=== PATIENT | female | born 1960 | race Caucasian/White ===

== ENCOUNTER 2020-01-12 01:10 | Emergency (ER) | payer BC, OTHER ==
[2020-01-12] MEDS ORDERED: Albuterol/Ipratropium 3.0-0.5 MG/3 ML Neb Soln ONE (01:18)
[2020-01-12] MEDS ORDERED: Albuterol/Ipratropium 3.0-0.5 MG/3 ML Neb Soln NEB ONE (01:22)
[2020-01-12] MEDS ORDERED: EPINEPHrine 1 MG in Sodium Chloride 0.9% 100 ML IV SCH ×2 (01:30→02:15)
[2020-01-12] MEDS ORDERED: DOPamine/Dextrose 5%-Water 400 MG/250 ML BAG IV SCH ×2 (01:45→03:15)
[2020-01-12] MEDS ORDERED: Piperacillin/Tazobactam 4.5 GM in Sodium Chloride 0.9% 100 ML IV ONE (01:59)
[2020-01-12] MEDS ORDERED: Piperacillin/Tazobactam 4.5 GM Vial ONE (02:01)
[2020-01-12] MEDS ORDERED: Sodium Chloride 0.9% 100 ML ONE (02:03)
[2020-01-12] MEDS ORDERED: EPINEPHrine 1 MG/ML SDV ONE ×2 (02:12→02:14)
[2020-01-12] MEDS ORDERED: Sodium Chloride 0.9% 250 ML ONE (02:13)
[2020-01-12] MEDS ORDERED: Aspirin 81 MG Tab.Chew PO ONE (02:14)
[2020-01-12] MEDS ORDERED: Aspirin 81 MG Tab.Chew ONE (02:15)
--- NOTE | 2020-01-12 02:29 | EDM.PDOC ---
ED HPI GENERAL MEDICAL PROBLEM - General Chief Complaint: Cardiovascular Problem Stated Complaint: [facility] Time Seen by Provider: 01/12/20 01:10 Source of Information: Reports: EMS, Family History Limitations: Reports: Physical Impairment - History of Present Illness INITIAL COMMENTS - FREE TEXT/NARRATIVE: 59-year-old female with no known coronary artery disease, she does have a history of hypertension, asthma and heavy smoking. Tonight she was in the process of putting a TENS unit on her back when she collapsed and called out for her . He did not come the first time she yelled because he was half asleep, the second time he went out and found her unconscious facedown on the floor. He rolled her over and she was unresponsive, he started CPR. After 20 minutes EMS arrived and initiated resuscitation, initial finisher special stocks showed ventricular fibrillation. They did get return of spontaneous circulation after 2 defibrillations and 2 doses of epinephrine. On arrival to the emergency room she was starting to become hypotensive and bradycardic. Epinephrine drip at 8 mcg per kg a minute was started, and she was prepared for intubation. Cardiac monitoring showed atrial fibrillation with occasional PVCs, rate 80. 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 [Unable to Verify Home Med List] 01/12/20 [History] ED ROS GENERAL - Review of Systems Review Of Systems: See Below Constitutional: Reports: Other (She has been falling asleep while at the computer over the past several days). Denies: Fever, Chills Respiratory: Reports: Other (According to her she was having some cold symptoms over the past 3 days and he got her some cold medicine today which she did not take) GI/Abdominal: Denies: Nausea, Vomiting Neurological: Denies: Headache Free Text/Narrative/Comment: Brief review of systems was obtained from her ED EXAM, GENERAL - Physical Exam Exam: See Below Exam Limited By: Other (Very obese, unresponsive female intubated with a temporary airway by EMS. She is completely unresponsive) Eye Exam: Right Eye: PERRL (Pupils are equal at 4 mm and slightly reactive) Head: Atraumatic Respiratory/Chest: Wheezing (Scattered expiratory wheezes are present) Cardiovascular: Irregularly Irregular, Other (Very distant heart sounds) GI/Abdominal: Other (Morbid obesity, no involuntary guarding) Extremities: Other (1+ symmetric lower extremity edema) Neurological: Unresponsive (Patient had no reaction to pain) Skin Exam: Warm, Dry Course - Vital Signs Last Recorded V/S: Last Vital Signs Temp Pulse 70 01/12/20 01:15 Resp 12 01/12/20 01:15 BP 120/70 01/12/20 01:15 Pulse Ox 85 L 01/12/20 01:15 - Orders/Labs/Meds Orders: Active Orders 24 hr Category Date Time Status Insert Taylor Catheter [Insert Urinary Catheter] [OM.PC] Care 01/12/20 02:00 Ordered Q24H RT Aerosol Therapy [RC] ASDIRECTED Care 01/12/20 01:22 Active Urinary Catheter Assessment [RC] ASDIRECTED Care 01/12/20 01:53 Active Chest 1V Frontal [CR] Stat Exams 01/12/20 01:20 Taken CULTURE BLOOD [BC] Routine Lab 01/12/20 01:55 Received CULTURE BLOOD [BC] Routine Lab 01/12/20 02:09 Received DRUG SCREEN, URINE [URCHEM] Stat Lab 01/12/20 02:26 Ordered UA W/MICROSCOPIC [URIN] Urgent Lab 01/12/20 02:26 Ordered DOPamine/Dextrose 5%-Water [DOPamine in D5W 400 MG/250 Med 01/12/20 01:45 Ordered ML] 400 mg in 250 ml IV TITRATE Medication Orders Dopamine HCl/Dextrose (Dopamine In D5w 400 Mg/250 Ml) 400 mg in 250 mls @ 0 mls /hr IV TITRATE CHLOE; Protocol Labs: Laboratory Tests 01/12/20 01/12/20 01/12/20 Range/Units 01:10 01:10 01:10 WBC 13.4 H (4.5-11.0) K/uL RBC 5.29 (3.30-5.50) M/uL Hgb 16.2 H (12.0-15.0) g/dL Hct 51.8 H (36.0-48.0) % MCV 98 (80-98) fL MCH 31 (27-31) pg MCHC 31 L (32-36) % Plt Count 294 (150-400) K/uL Add Manual Diff Yes Neutrophils % (Manual) 74 H (36-66) % Band Neutrophils % 3 L (5-11) % Lymphocytes % (Manual) 14 L (24-44) % Monocytes % (Manual) 6 (2-6) % Eosinophils % (Manual) 2 (2-4) % D-Dimer, Quantitative (0.0-400.0) ng/mL Puncture Site Lt radial ABG pH 7.085 L* (7.350-7.450) ABG pCO2 90.3 H* (35.0-42.0) mmHg ABG pO2 69.7 L (75.0-100.0) mmHg ABG HCO3 25.9 (22.0-26.0) mmol/L ABG Total CO2 24.5 (21.0-25.0) mmol/L ABG O2 Saturation 83.8 L (95.0-98.0) % ABG O2 Content 18.7 (15.0-23.0) %vol ABG Base Excess -7.7 mm/L ABG Hemoglobin 16.3 H (12.0-16.0) g/dL ABG Oxyhemoglobin 82.0 % ABG Carboxyhemoglobin 1.5 (0.0-1.6) % ABG Methemoglobin 0.7 % Mateusz Test Pass O2 Delivery Device Resuscitation bag Sodium 129 L (140-148) mmol/L Potassium 3.6 (3.6-5.2) mmol/L Chloride 90 L (100-108) mmol/L Carbon Dioxide 29 (21-32) mmol/L Anion Gap 13.6 (5.0-14.0) mmol/L BUN 6 L (7-18) mg/dL Creatinine 1.1 H (0.6-1.0) mg/dL Est Cr Clr Drug Dosing TNP Estimated GFR (MDRD) 51 L (>60) Glucose 278 H (74-106) mg/dL Calcium 8.4 L (8.5-10.1) mg/dL Total Bilirubin 0.5 (0.2-1.0) mg/dL AST 25 (15-37) U/L ALT 26 (12-78) U/L Alkaline Phosphatase 128 H (46-116) U/L Troponin I 0.019 (0.000-0.056) ng/mL Total Protein 7.1 (6.4-8.2) g/dL Albumin 2.6 L (3.4-5.0) g/dL Globulin 4.5 H (2.3-3.5) g/dL Albumin/Globulin Ratio 0.6 L (1.2-2.2) Urine Color (YELLOW) Urine Appearance (CLEAR) Urine pH (5.0-8.0) Ur Specific Apex (1.008-1.030) Urine Protein (NEGATIVE) mg/dL Urine Glucose (UA) (NEGATIVE) mg/dL Urine Ketones (NEGATIVE) mg/dL Urine Occult Blood (NEGATIVE) Urine Nitrite (NEGATIVE) Urine Bilirubin (NEGATIVE) Urine Urobilinogen (0.2-1.0) EU/dL Ur Leukocyte Esterase (NEGATIVE) Urine RBC (0-5) Urine WBC (0-5) Ur Epithelial Cells Amorphous Sediment Urine Bacteria Urine Mucus Urine Opiates Screen (NEGATIVE) Ur Oxycodone Screen (NEGATIVE) Urine Methadone Screen (NEGATIVE) Ur Propoxyphene Screen (NEGATIVE) Ur Barbiturates Screen (NEGATIVE) Ur Tricyclics Screen (NEGATIVE) Ur Phencyclidine Scrn (NEGATIVE) Ur Amphetamine Screen (NEGATIVE) U Methamphetamines Scrn (NEGATIVE) Urine MDMA Screen (NEGATIVE) U Benzodiazepines Scrn (NEGATIVE) U Cocaine Metab Screen (NEGATIVE) U Marijuana (THC) Screen (NEGATIVE) 01/12/20 01/12/20 01/12/20 Range/Units 01:10 02:00 02:16 WBC (4.5-11.0) K/uL RBC (3.30-5.50) M/uL Hgb (12.0-15.0) g/dL Hct (36.0-48.0) % MCV (80-98) fL MCH (27-31) pg MCHC (32-36) % Plt Count (150-400) K/uL Add Manual Diff Neutrophils % (Manual) (36-66) % Band Neutrophils % (5-11) % Lymphocytes % (Manual) (24-44) % Monocytes % (Manual) (2-6) % Eosinophils % (Manual) (2-4) % D-Dimer, Quantitative 3490 H (0.0-400.0) ng/mL Puncture Site ABG pH (7.350-7.450) ABG pCO2 (35.0-42.0) mmHg ABG pO2 (75.0-100.0) mmHg ABG HCO3 (22.0-26.0) mmol/L ABG Total CO2 (21.0-25.0) mmol/L ABG O2 Saturation (95.0-98.0) % ABG O2 Content (15.0-23.0) %vol ABG Base Excess mm/L ABG Hemoglobin (12.0-16.0) g/dL ABG Oxyhemoglobin % ABG Carboxyhemoglobin (0.0-1.6) % ABG Methemoglobin % Mateusz Test O2 Delivery Device Sodium (140-148) mmol/L Potassium (3.6-5.2) mmol/L Chloride (100-108) mmol/L Carbon Dioxide (21-32) mmol/L Anion Gap (5.0-14.0) mmol/L BUN (7-18) mg/dL Creatinine (0.6-1.0) mg/dL Est Cr Clr Drug Dosing Estimated GFR (MDRD) (>60) Glucose (74-106) mg/dL Calcium (8.5-10.1) mg/dL Total Bilirubin (0.2-1.0) mg/dL AST (15-37) U/L ALT (12-78) U/L Alkaline Phosphatase (46-116) U/L Troponin I (0.000-0.056) ng/mL Total Protein (6.4-8.2) g/dL Albumin (3.4-5.0) g/dL Globulin (2.3-3.5) g/dL Albumin/Globulin Ratio (1.2-2.2) Urine Color Yellow (YELLOW) Urine Appearance Clear (CLEAR) Urine pH 7.0 (5.0-8.0) Ur Specific Apex 1.015 (1.008-1.030) Urine Protein 100 H (NEGATIVE) mg/dL Urine Glucose (UA) Negative (NEGATIVE) mg/dL Urine Ketones Negative (NEGATIVE) mg/dL Urine Occult Blood Negative (NEGATIVE) Urine Nitrite Negative (NEGATIVE) Urine Bilirubin Negative (NEGATIVE) Urine Urobilinogen 0.2 (0.2-1.0) EU/dL Ur Leukocyte Esterase Negative (NEGATIVE) Urine RBC 0-5 (0-5) Urine WBC 0-5 (0-5) Ur Epithelial Cells Rare Amorphous Sediment Not seen Urine Bacteria Rare Urine Mucus Not seen Urine Opiates Screen Negative (NEGATIVE) Ur Oxycodone Screen Negative (NEGATIVE) Urine Methadone Screen Negative (NEGATIVE) Ur Propoxyphene Screen Negative (NEGATIVE) Ur Barbiturates Screen Negative (NEGATIVE) Ur Tricyclics Screen Negative (NEGATIVE) Ur Phencyclidine Scrn Negative (NEGATIVE) Ur Amphetamine Screen Negative (NEGATIVE) U Methamphetamines Scrn Negative (NEGATIVE) Urine MDMA Screen Negative (NEGATIVE) U Benzodiazepines Scrn Negative (NEGATIVE) U Cocaine Metab Screen Negative (NEGATIVE) U Marijuana (THC) Screen Negative (NEGATIVE) Meds: Medications Generic Name Dose Route Start Last Admin Trade Name Freq PRN Reason Stop Dose Admin Dopamine HCl/Dextrose 400 mg in 250 mls @ 0 mls/hr 01/12/20 01:45 Dopamine In D5w 400 Mg/250 Ml IV TITRATE CHLOE Protocol 2 MCG/KG/MIN Discontinued Medications Generic Name Dose Route Start Last Admin Trade Name Freq PRN Reason Stop Dose Admin Albuterol/Ipratropium Confirm 01/12/20 01:18 01/12/20 03:03 Duoneb 3.0-0.5 Mg/3 Ml Administered 01/12/20 01:19 Not Given Dose 3 ml .ROUTE .STK-MED ONE Albuterol/Ipratropium 3 ml 01/12/20 01:22 01/12/20 01:32 Duoneb 3.0-0.5 Mg/3 Ml NEB 01/12/20 01:23 3 ml ONETIME ONE Administration Aspirin 324 mg 01/12/20 02:14 01/12/20 02:15 Aspirin PO 01/12/20 02:15 324 mg ONETIME ONE Administration Aspirin Confirm 01/12/20 02:15 01/12/20 03:03 Aspirin Administered 01/12/20 02:16 Not Given Dose 324 mg .ROUTE .STK-MED ONE Epinephrine HCl Confirm 01/12/20 02:12 01/12/20 02:59 Adrenalin Administered 01/12/20 02:13 Not Given Dose 1 mg .ROUTE .STK-MED ONE Epinephrine HCl Confirm 01/12/20 02:14 01/12/20 02:59 Adrenalin Administered 01/12/20 02:15 Not Given Dose 3 mg .ROUTE .STK-MED ONE Epinephrine HCl 1 mg/ Sodium 101 mls @ 76.96 mls/hr 01/12/20 01:30 01/12/20 01:10 Chloride IV 0.1 mcg/kg/min TITRATE CHLOE 76.96 mls/hr Administration Protocol 0.1 MCG/KG/MIN Piperacillin Sod/Tazobactam 100 mls @ 100 mls/hr 01/12/20 01:59 01/12/20 02: 05 Sod 4.5 gm/ Sodium Chloride IV 01/12/20 02:58 100 mls/hr ONETIME ONE Administration Sodium Chloride Confirm 01/12/20 02:03 01/12/20 03:04 Normal Saline Administered 01/12/20 02:04 Not Given Dose 100 mls @ as directed .ROUTE .STK-MED ONE Sodium Chloride Confirm 01/12/20 02:13 01/12/20 03:04 Normal Saline Administered 01/12/20 02:14 Not Given Dose 250 mls @ as directed .ROUTE .STK-MED ONE Epinephrine HCl 4 mg/ Sodium 254 mls @ 48.38 mls/hr 01/12/20 02:15 01/12/20 02:15 Chloride IV 0.1 mcg/kg/min TITRATE CHLOE 48.38 mls/hr Administration Protocol 0.1 MCG/KG/MIN Dopamine HCl/Dextrose 400 mg in 250 mls @ 23.814 mls/hr 01/12/20 03:15 01:28 Dopamine In D5w 400 Mg/250 Ml IV 5 mcg/kg/min TITRATE CHLOE 23.814 mls/hr Administration Protocol 5 MCG/KG/MIN Piperacillin Sod/Tazobactam Sod Confirm 01/12/20 02:01 01/12/20 03:04 Zosyn Administered 01/12/20 02:02 Not Given Dose 4.5 gm .ROUTE .STK-MED ONE - Re-Assessments/Exams Free Text/Narrative Re-Assessment/Exam: 01/12/20 02:31 Shortly after arrival the patient's pulse and blood pressure started dropping, a 1 mcg/kg/min epinephrine drip was initiated. She responded well to this initially. She was also prepared for intubation, which was done with an 8.0 ET tube by anesthesia. An IV was started in the right arm, and after a bedside ultrasound of the heart which showed hyperdynamic ventricles and no atrial dilatation, fluid boluses were initiated. She was also given a DuoNeb through the ET tube. Patient's blood pressure started dropping again, so the epinephrine was increased to 12 mcg/min/kg and a 5 mg/min dopamine drip was started. She responded very well to this in fact came mildly tachycardic so the epinephrine was turned back down to 8 mcg/min. 324 mg of aspirin was given through the ET tube. A chest x-ray was obtained, showed no pneumothorax, significant failure or infiltrate. Blood gases revealed a pH of 7.08, CO2 of 67. Patient remained stable with a combination of epinephrine and dopamine. Phone consultation was made with [facility], talked with the juvenile justice specialist and he recommended blood cultures and a dose of Zosyn and vancomycin as well as some Narcan. She was accepted for transfer at 02:20. However there was no history of narcotics per the family or OIL DELIVERER, blood culture was obtained and we had time for the Zosyn. An NG tube was placed as well as a Taylor catheter. [facility] arrived to transfer the patient to [facility] , she was discharged with a blood pressure 112/62, pulse of 120 which appeared to be a sinus arrhythmia or atrial fibrillation. EKG showed possible ST elevation in the anteroseptal leads, this was faxed to [facility] and she will likely go directly to [facility]. [facility] arrived in [place] at 1:50 AM. They arrived at the hospital at 2 AM and did not leave till 2:50 AM doing their preparations, exchanging IVs, transfering of the patient and additional requests. 01/12/20 02:57 Total bedside intensive care was 90 minutes. Departure - Departure Time of Disposition: 03:16 Disposition: DC/Tfer to Acute Hospital 02 Reason for Transfer *Q: Primary PCI Indicated Clinical Impression: Cardiopulmonary arrest with successful resuscitation Referrals: PCP,None [Primary Care Provider] - Forms: ED Department Discharge Care Plan Goals: Urgent transfer to [facility] in [place] for cardiac catheterization further evaluation and treatment. Critical Care Note - Critical Care Note Total Time (mins): 90 Sepsis Event Note - Focused Exam Vital Signs: Vital Signs Pulse Resp BP Pulse Ox 01/12/20 01:15 70 12 120/70 85 L Date Exam was Performed: 01/12/20 Time Exam was Performed: 03:52 - My Orders Last 24 Hours: My Active Orders 01/12/20 01:20 Chest 1V Frontal [CR] Stat 01/12/20 01:22 RT Aerosol Therapy [RC] ASDIRECTED 01/12/20 01:45 DOPamine/Dextrose 5%-Water [DOPamine in D5W 400 MG/250 ML] 400 mg in 250 ml IV TITRATE 01/12/20 01:53 Urinary Catheter Assessment [RC] ASDIRECTED 01/12/20 01:55 CULTURE BLOOD [BC] Routine 01/12/20 02:00 Insert Taylor Catheter [Insert Urinary Catheter] [OM.PC] Q24H 01/12/20 02:09 CULTURE BLOOD [BC] Routine 01/12/20 02:26 DRUG SCREEN, URINE [URCHEM] Stat UA W/MICROSCOPIC [URIN] Urgent - Assessment/Plan Last 24 Hours: My Active Orders 01/12/20 01:20 Chest 1V Frontal [CR] Stat 01/12/20 01:22 RT Aerosol Therapy [RC] ASDIRECTED 01/12/20 01:45 DOPamine/Dextrose 5%-Water [DOPamine in D5W 400 MG/250 ML] 400 mg in 250 ml IV TITRATE 01/12/20 01:53 Urinary Catheter Assessment [RC] ASDIRECTED 01/12/20 01:55 CULTURE BLOOD [BC] Routine 01/12/20 02:00 Insert Taylor Catheter [Insert Urinary Catheter] [OM.PC] Q24H 01/12/20 02:09 CULTURE BLOOD [BC] Routine 01/12/20 02:26 DRUG SCREEN, URINE [URCHEM] Stat UA W/MICROSCOPIC [URIN] Urgent
--- NOTE | 2020-01-12 04:29 | ANES ---
DATE OF SERVICE: 01/12/2020 TIME: 1:10. I was called to the emergency room by Dr. Kern for a code blue situation. When I got to the emergency room, the ambulance service did have an alternative airway in. Seemed like they were ventilating her okay, but due to the nature of shipping her to another facility, they would like to protect her airway further with an endotracheal tube. She was nonresponsive and did have a heartbeat at this time. I did use a 3 MAC blade and inserted an 8.0 endotracheal tube with ease. There was positive end-tidal CO2 and equal bilateral breath sounds. That was secured through by the nursing staff. I then did put an 18-Guyanese nasogastric tube into the right naris and into the stomach and we got a nice return of gastric contents. Thor Carbone CRNA /[id number]
--- NOTE | 2020-01-12 09:03 | CR ---
CHEST: Portable 01/12/2020 at 1:32 AM CLINICAL HISTORY:Collapse COMPARISON:None FINDINGS: Study is limited due to overlying adequate alignment. Patient has been intubated. The endotracheal tube is in the distal trachea near the benny. NG tube is been placed. Heart is enlarged. Vascularity appears cephalized. This may be positional. Interstitial markings are prominent which may represent pulmonary edema. Impression: Limited portable chest due to overlying resuscitation equipment. The cardiomegaly with suggestion of vascular congestion and bilateral pulmonary edema. Endotracheal and nasogastric intubation. Endotracheal tube appears approximately 1 cm from the benny
== END 2020-01-12 02:58 ==
LOC: JP.ED 01:10
DX: I46.9 Cardiac arrest, cause unspecified (principal)
CPT/HCPCS: 31500; 36415; 36600; 43752; 51702; 71045; 80053; 80305; 81001; 82803; 84484; 85025; 85379; 87040; 92950; 93005; 94640; 99291; 99292; A9270; J0171; J1265; J2543; J7050; J7620-GY